=== PATIENT | female | born 1945 | race Caucasian/White ===

== ENCOUNTER → 2016-08-11 | Day surgery (SDC) | payer OTHER ==
[~2016-08-11] VITALS: Ht 170.2 cm; Wt 86.2 kg
--- NOTE | 2016-08-11 11:46 | Operative Report ---
Operative/Inv Procedure Report Surgery Date: 08/11/16 Name of Procedure: Laparoscopic incisional hernia repair, incarcerated Pre-Operative Diagnosis: Incarcerated incisional hernia Post-Operative Diagnosis: Same Estimated Blood Loss: scant Surgeon/Capsule Filler: LOLITA GRAY,KRISTA Ojeda/Ms. Bharath OROZCO Anesthesia: general endotracheal tube Implants: 9 cm Parietex Operative Indication: 71-year-old woman with a port site hernia and left upper quadrant. She presents for elective repair Operative/Procedure Note Note: After consent she was brought to the operating room laid supine. Gen. anesthesia was obtained and her abdomen was prepped and draped. The skin and left upper quadrant was after local anesthesia and a transverse incision made sharply. The peritoneum was accessed percutaneously using a 12 mm optical trocar. Pneumoperitoneum was achieved. 2, 5 mm ports placed in the left lower quadrant after local anesthesia was instilled and under direct vision the camera. There were adhesions to the periumbilical region. These were taken down with cautery. There is no umbilical hernia. There was however a visible piece of Prolene suture which was extracted. In the epigastric region near the falciform ligament there was a large incisional hernia. It appeared to be related to a prior 5 mm trocar. The contents were delivered and the orifice circumferentially dissected with cautery. There was incarcerated fatty tissue which was reduced and reflected inferiorly. We then cleared the fatty peritoneum around the hole to allow good mesh to fascia apposition. The defect was 2.5 cm in greatest dimension. I elected to use a 9 cm round Parietex mesh to cover the defect. Anchored in 4 quadrants with 0 Yaphank-Pacheco suture then hydrated rolled up and placed the perineal cavity. Transfixion sutures then brought up percutaneously in a sequential fashion. The mesh was in proper position was centered over the defect, the sutures were tied. The mesh was then circumferentially tacked with the observe attacker in a double crown fashion. In order to get proper apposition of the mesh I placed another 5 mm port in the right upper quadrant. Once were happy the placement of mesh the gas to escape and extracted ports. The fascia was closed with 0 Vicryl suture in the left upper quadrant. Skin incisions closed with 4-0 Vicryl. Steri-Strips and sterile dressing applied. Sponge and counts are correct CC: TWYLA GRAY,ROSI Zimmerman
== END ==
LOC: STS 02:00
DX: K43.0 Incisional hernia with obstruction, without gangrene (principal); Z98.84 Bariatric surgery status; I10 Essential (primary) hypertension; K21.9 Gastro-esophageal reflux disease without esophagitis
CPT/HCPCS: J0690; J2250

== ENCOUNTER 2017-12-01 10:44 | Emergency (ER) | payer OTHER ==
[~2017-12-01] VITALS: Ht 165.1 cm; Wt 86.2 kg
--- NOTE | 2017-12-01 12:02 | RADIOLOGY REPORT ---
EXAMINATION: XR KNEE, RIGHT CLINICAL INFORMATION: Pain status post fall. Rule out fracture versus effusion. COMPARISON: None TECHNIQUE: 6 views of the right knee. FINDINGS: There is an intra-articular essentially nondisplaced fracture of the lateral tibial plateau. Moderate size suprapatellar knee joint effusion is seen. Diffuse osteopenia is noted. No additional acute fracture or dislocation is seen. There is severe degenerative change in the patellofemoral compartment with joint space narrowing and patellar spurring seen. There is prominent anterior cortical scalloping of the distal right femoral metaphysis, perhaps related to chronic patellar tracking abnormality. There is moderate degenerative change in the medial and lateral femoral compartments with joint space narrowing, spurring and small cystic changes seen. IMPRESSION: 1. Acute nondisplaced intra-articular fracture of the lateral tibial plateau with moderate size suprapatellar knee joint effusion. 2. Diffuse osteopenia. 3. Tricompartmental moderate to severe degenerative changes.
--- NOTE | 2017-12-01 14:10 | ED UPPER/LOWER EXTREMITY COMPL ---
History of Present Illness General Chief Complaint: Lower Extremity Problems Stated Complaint: S/P FALL LAST PM, R KNEE PAIN Source: patient Exam Limitations: no limitations Vital Signs & Intake/Output Vital Signs & Intake/Output Vital Signs Date Time Temp Pulse Resp B/P B/P Pulse O2 O2 Flow FiO2 Mean Ox Delivery Rate 12/01 1602 98.4 61 18 120/64 96 Room Air 12/01 1407 98.5 68 18 124/66 12/01 1355 98.0 12/01 1057 98.0 67 18 128/82 98 Room Air ED Intake and Output 12/02 0000 12/01 1200 Intake Total 0 Output Total 0 Balance 0 Intake, Oral 0 Output, Urine 0 Patient 190 lb Weight Allergies Coded Allergies: No Known Allergies (07/28/16) Reconcile Medications Ibuprofen 600 MG TABLET 1 TAB PO TID pain with food Oxycodone HCl/Acetaminophen (Percocet 5-325 MG Tablet) 5 MG-325 MG TABLET 1 TAB PO BID pain [ROLLING WALKER] Triage Note: 72F MECHANICAL FALL LAST NIGHT ONTO RIGHT KNEE, ARRIVES WITH LATERAL KNEE PAIN, SWELLING AND DIFFICULTY BEARING WEIGHT. PAIN WORSE WITH KNEE EXTENSION. +PULSES AND MOVEMENT TO AFFECTED LEG. HX OA. DENIES HEADSTRIKE OR LOC. MEDICATED WITH TYLENOL IN TRIAGE Triage Nurses Notes Reviewed? yes Onset: last night Duration: continues in ED, getting worse Timing: no prior history Pain/Injury Location: Right: Knee. Method of Injury: fall LMP (ages 10-50): post menopausal HPI: 72-year-old female presents to the emergency department complaining of a fall that occurred last night. She reports she had she was carrying something in her hands when she had stepped on a coat metal ceiling hanger and fell on her right knee and then fell on her back. She denies hitting her head. She states that she had an oxycodone pill left over from a surgery about 4 years ago, so she ended up taking this and falling to sleep. She reports waking up this morning with significant pain in the right knee and was unable to bear weight. She also noticed some swelling above the right knee. She reports osteoarthritis in both knees to which she takes advil as needed. She has not taken any pain medication since then.* (Candice Villeda) Past History Travel History Traveled to [place] past 21 day No Medical History Any Pertinent Medical History? see below for history Neurological: NONE EENT: NONE Cardiovascular: NONE Respiratory: NONE Gastrointestinal: NONE Hepatic: NONE Renal: NONE Musculoskeletal: OA Psychiatric: NONE Endocrine: NONE Blood Disorders: NONE Surgical History Surgical History: hernia repair Psychosocial History Where do you live Home Who do you live with Other (see notes) (son and daughter in law) What is your primary language Yoruba Tobacco Use: Never used Family History Hx Contributory? No (Candice Villeda) Review of Systems Review of Systems Constitutional: Reports: no symptoms. EENTM: Reports: no symptoms. Respiratory: Reports: no symptoms. Cardiovascular: Reports: no symptoms. Gastrointestinal/Abdominal: Reports: no symptoms. Genitourinary: Reports: no symptoms. Musculoskeletal: Reports: see HPI. Skin: Reports: no symptoms. Neurological/Psychological: Reports: no symptoms. Hematologic/Endocrine: Reports: no symptoms. Immunological: Reports: no symptoms. All Other Systems: Reviewed and Negative (Candice Villeda) Physical Exam Physical Exam General Appearance: well developed/nourished, no apparent distress, alert, awake , comfortable Head: atraumatic, normal appearance Eyes: Bilateral: normal appearance, EOMI. Ears, Nose, Throat: hearing grossly normal Neck: normal inspection, full range of motion Cardiovascular/Respiratory: no respiratory distress Knee Right: swelling (suprapatellar), tenderness (laterally), joint effusion ( mild), limited range of motion (with flexion and extension) Neurologic/Tendon: normal sensation Skin: intact, normal color, warm/dry Diagram Legs Front/Back 1) 2) (Candice Villeda) Progress Differential Diagnosis: dislocation, fracture, sprain, tendon injury Plan of Care: Orders Procedure Date/time Status Durable Medical Equipment 12/01 1417 Active Diagnostic Imaging: Viewed by Me: Radiology Read. Discussed w/RAD: Radiology Read. Radiology Impression: PATIENT: DEJA HERNANDEZ PRESENT AGE: 72 PATIENT ACCOUNT NO: [id number] : 46 LOCATION: [facility] ORDERING PHYSICIAN: Yunior Dawson MD SERVICE DATE: 12/01/17 EXAM TYPE: RAD - XRY-KNEE COMPLETE RIGHT EXAMINATION: XR KNEE, RIGHT CLINICAL INFORMATION: Pain status post fall. Rule out fracture versus effusion. COMPARISON: None TECHNIQUE: 6 views of the right knee. FINDINGS: There is an intra-articular essentially nondisplaced fracture of the lateral tibial plateau. Moderate size suprapatellar knee joint effusion is seen. Diffuse osteopenia is noted. No additional acute fracture or dislocation is seen. There is severe degenerative change in the patellofemoral compartment with joint space narrowing and patellar spurring seen. There is prominent anterior cortical scalloping of the distal right femoral metaphysis, perhaps related to chronic patellar tracking abnormality. There is moderate degenerative change in the medial and lateral femoral compartments with joint space narrowing, spurring and small cystic changes seen. IMPRESSION: 1. Acute nondisplaced intra-articular fracture of the lateral tibial plateau with moderate size suprapatellar knee joint effusion. 2. Diffuse osteopenia. 3. Tricompartmental moderate to severe degenerative changes. DICTATED BY: Arabella Martinez MD DATE/TIME DICTATED:12/01/171155 HEALTH DATA ANALYST:ANNA DATE/TIME TRANSCRIBED:12/01/171155 CONFIDENTIAL, DO NOT COPY WITHOUT APPROPRIATE AUTHORIZATION. <Electronically signed in Other Vendor System> SIGNED BY: Arabella Martinez MD 12/01/17 1202 (Candice Villeda) Departure Departure Disposition: HOME OR SELF CARE Condition: Stable Clinical Impression Primary Impression: Tibial plateau fracture, right Qualifiers: Encounter type: initial encounter Fracture type: closed Qualified Code: S82.141A - Displaced bicondylar fracture of right tibia, initial encounter for closed fracture Referrals: Jakub GRAY,Hannah Zimmerman (PCP/Family) Todd Grey MD Additional Instructions: Keep knee immobilizer on and in place and do not bear any weight. Take ibuprofen as needed for right knee pain. Take Percocet as needed for pain as well sparingly. Follow-up with orthopedic Dr. Grey. Use walker as directed, and stay off of right leg as much as possible. Return to the emergency department with any concerning symptoms or worsening pain. Departure Forms: Customer Survey General Discharge Information Prescriptions: Current Visit Scripts Ibuprofen 1 TAB PO TID #30 TAB with food Oxycodone HCl/Acetaminophen (Percocet 5-325 MG Tablet) 1 TAB PO BID #10 TAB [ROLLING WALKER] #1 Comments 12/01/17 2:09 pm Spoke with on-call orthopedic Dr. Elizabeth who recommended knee immobilizer versus posterior/anterior lateral splint. Patient should be nonweightbearing. She should be in a wheelchair and/or walker. She should follow up outpatient orthopedic office. 12/01/17 2:53 pm Spone with Margarita, case management, and she is going to get wheelchair ordered for patient. Patient tolerated IM injection of toradol well. 12/01/17 4:49pm Spoke with Margarita from case management and spoke with patient who is stating that wheelchair will not be able to be used in her house as there is limited space for this. She is requesting a walker. She states she is going to be off her feet as much as possible, especially until she sees the orthopedic doctor. Patient tolerating knee immobilizer well. 72-year-old female presented to the emergency department after mechanical fall onto her right knee. The right knee x-ray revealed a lateral tibial plateau fracture. She was given a knee immobilizer and discharged with a rolling walker. She was given prescription for ibuprofen and Percocet as needed for the pain. She was advised to follow-up outpatient with phone triage specialist this week. She was also advised to keep her right knee elevated and not to use any weightbearing on the right leg. Patient understood discharge instructions and agreed with plan. (Candice Villeda) PA/PAINT PREPARER Co-Sign Statement Statement: ED Attending supervision documentation- x I saw and evaluated the patient. I have also reviewed all the pertinent lab results and diagnostic results. I agree with the findings and the plan of care as documented in the PA's/PAINT PREPARER's documentation. [] I have reviewed the ED Record and agree with the PA's/PAINT PREPARER's documentation. [] Additions or exceptions (if any) to the PAs/PAINT PREPARER's note and plan are summarized below: [] (Samir GRAY,Yunior)
[2017-12-01] MEDS ORDERED: IBUPROFEN600 M1 PO (14:52)
[2017-12-01] MEDS ORDERED: PERCOCET 5-3251 EACH PO (14:52)
[2017-12-01 16:02] VITALS: BP 120/64
[2017-12-01] MEDS ORDERED: ROLLING WALKER (17:33)
== END 2017-12-01 17:41 ==
LOC: ERH 10:44
DX: S82.141A Displaced bicondylar fracture of right tibia, initial encounter for closed fracture (principal); W19.XXXA Unspecified fall, initial encounter; Y92.9 Unspecified place or not applicable; Y93.9 Activity, unspecified
CPT/HCPCS: 73562-RT; 96372; J1885